=== PATIENT | male | born 1940 | race Caucasian/White ===

== ENCOUNTER → 2016-07-31 | Outpatient (CLI) | payer OTHER ==
[~2016-07-31] MED LIST: ASPEC81 PO; ATV5 PO; CLON0.2T PO; CRD4 PO; CZR50 PO; HYDR25TA5 PO; LBT200 PO; NTRC PO; PLV75 PO; XLTOPS OPB
[2016-07-31 12:57] LABS: BASO % 1.3 %; BASO ABS # 0.09 K/uL (0-0.2); COMPLETE YES; EOS % 5.2 %; IG% 0.7 %; LYMPH % 15.8 %; LYMPH ABS # 1.06 K/uL (1.2-3.4); MEAN CELL VOLUME 87.2 fL (80-100); MEAN CORPUSCULAR HEMOGLOBIN 29.9 pg (25-34); MEAN CORPUSCULAR HGB CONC 34.3 g/dl (32-36); MEAN PLATELET VOLUME 10.7 fL (7.4-10.4); MONO % 10.1 %; NEUT % 66.9 %; PLATELET COUNT 122 K/uL (130-400); RED BLOOD COUNT 5.39 M/uL (4.7-6.1)
[2016-07-31 13:34] LABS: ESTIMATED AVERAGE GLUCOSE 137 mg/dl; HA1C FLAG Normal (Normal)
[2016-07-31 13:52] LABS: ALT/SGPT 27 U/L (12-78); BLOOD UREA NITROGEN 29 mg/dl (7-18); BUN/CREATININE RATIO 26.1 (10-20); CALCIUM 9.2 mg/dl (8.5-10.1); CARBON DIOXIDE 26 mmol/L (21-32); CHLORIDE 105 mmol/L (98-107); CHOLESTEROL 205 mg/dl (0-200); GLUCOSE 127 mg/dl (70-99); POTASSIUM 4.1 mmol/L (3.5-5.1); SODIUM 139 mmol/L (136-145); TRIGLYCERIDES 124 mg/dl (0-150); VERY LOW DENSITY LIPOPROT CALC 25 mg/dl
[2016-07-31 13:56] LABS: ALKALINE PHOSPHATASE 74 U/L (45-117); AST/SGOT 9 U/L (15-37); CHOLESTEROL/HDL RATIO 4.9; HDL CHOLESTEROL 42 mg/dl
== END | disposition home or self-care (01) ==
LOC: C.LABSPEC 12:16
PROVIDERS: ATTEND Internal Medicine
DX: I10 Essential (primary) hypertension (principal); I25.10 Atherosclerotic heart disease of native coronary artery without angina pectoris; E78.5 Hyperlipidemia, unspecified; R73.9 Hyperglycemia, unspecified

== ENCOUNTER → 2017-02-02 | Outpatient (CLI) | payer OTHER ==
[2017-02-02 13:30] LABS: ESTIMATED AVERAGE GLUCOSE 140 mg/dl; HA1C FLAG Normal (Normal)
[2017-02-02 14:17] LABS: BLOOD UREA NITROGEN 29 mg/dl (7-18); CALCIUM 9.3 mg/dl (8.5-10.1); CARBON DIOXIDE 29 mmol/L (21-32); CHLORIDE 103 mmol/L (98-107); CHOLESTEROL 206 mg/dl (0-200); CREATININE 1.31 mg/dl (0.60-1.40); GLUCOSE 125 mg/dl (70-99); POTASSIUM 4.8 mmol/L (3.5-5.1); SODIUM 138 mmol/L (136-145); TRIGLYCERIDES 128 mg/dl (0-150); VERY LOW DENSITY LIPOPROT CALC 26 mg/dl
[2017-02-02 14:28] LABS: CHOLESTEROL/HDL RATIO 4.6; HDL CHOLESTEROL 45 mg/dl
== END | disposition home or self-care (01) ==
LOC: C.LABSPEC 12:34
PROVIDERS: ATTEND Internal Medicine
DX: I25.10 Atherosclerotic heart disease of native coronary artery without angina pectoris (principal); I10 Essential (primary) hypertension

== ENCOUNTER → 2017-06-01 | Outpatient (CLI) | payer OTHER ==
[2017-06-01 14:27] LABS: BLOOD UREA NITROGEN 26 mg/dl (7-18); CARBON DIOXIDE 28 mmol/L (21-32); CHOLESTEROL 190 mg/dl (0-200); CREATININE 1.21 mg/dl (0.60-1.40); GLUCOSE 139 mg/dl (70-99); POTASSIUM 3.9 mmol/L (3.5-5.1); SODIUM 138 mmol/L (136-145)
[2017-06-01 14:31] LABS: LDL CHOLESTEROL (DIRECT) 132 mg/dl
[2017-06-02 07:24] LABS: HEMOGLOBIN A1C 6.8 % (4.5-5.6)
== END | disposition home or self-care (01) ==
LOC: C.LABSPEC 12:50
PROVIDERS: ATTEND Internal Medicine
DX: I25.10 Atherosclerotic heart disease of native coronary artery without angina pectoris (principal); I10 Essential (primary) hypertension; E11.9 Type 2 diabetes mellitus without complications